=== PATIENT | male | born 1965 | race African-American/Black ===

== ENCOUNTER 2023-12-23 19:07 | Inpatient (IN) | payer MEDICAID ==
[~2023-12-23] VITALS: Ht 165.1 cm; Wt 56.5 kg
[2023-12-23 21:59] LABS: BASOPHILS % 0.4 % (0.0-2.0); DIFFERENTIAL COMMENT 0; HEMOGLOBIN. 14.9 g/dL (14.0-18.0); MEAN CORPUSCULAR HEMOGLOBIN 28.1 pg (28.0-32.0); MEAN CORPUSCULAR HGB CONC 32.4 g/dL (31.0-37.0); MEAN CORPUSCULAR VOLUME 86.9 fL (80.0-94.0); MEAN PLATELET VOLUME 7.5 fl (7.4-10.4); MONOCYTES % 6.7 % (2.0-8.0); NEUTROPHILS % 79.9 % (40.0-76.0); PLATELET 329 x1000/uL (130-400); RED BLOOD CELL COUNT 5.29 mill/uL (4.7-6.1); RED CELL DISTRIBUTION WIDTH 15.6 % (11.6-14.6); WHITE BLOOD COUNT 12.3 x1000/uL (4.5-11.0)
[2023-12-23 22:06] LABS: CARBON DIOXIDE 23 mEq/L (21-32); CHLORIDE 101 mEq/L (98-107); POTASSIUM 4.6 mEq/L (3.5-5.1); SODIUM 132 mEq/L (136-145)
[2023-12-23 22:07] LABS: CALCIUM 9.1 mg/dL (8.7-10.4)
[2023-12-23 22:11] LABS: GLUCOSE 119 mg/dL (70-105)
[2023-12-23 22:12] LABS: UREA NITROGEN BLOOD 12 mg/dL (9-23)
[2023-12-23 22:13] LABS: ALANINE AMINOTRANSFERASE 7 IU/L (10-49); ALBUMIN 3.6 g/dL (3.2-4.8); ASPARTATE AMINOTRANSFERASE 11 IU/L (<34)
[2023-12-23 22:14] LABS: BILIRUBIN DIRECT 0.2 mg/dL (<=3.0); BILIRUBIN TOTAL 0.7 mg/dL (0.1-1.0); PROTEIN TOTAL 7.6 g/dL (6.0-8.3)
[2023-12-23 22:18] LABS: D-DIMER 8.05 mg/L FEU (<0.50); INR 1.1; PROTHROMBIN TIME 12.2 sec (9.6-11.0); TROPONIN I HIGH SENSITIVITY < 4 ng/L (3.0-53)
[2023-12-23] MEDS ORDERED: AZITHROMYCIN 500MG/250ML 250 ML IV SCH (23:00)
[2023-12-23] MEDS ORDERED: CEFTRIAXONE 1GM/50ML 50 ML IV ONE (23:00)
[2023-12-24] MEDS: SODIUM CHLORIDE 0.9% 1,000 ML IV ONE (00:19)
[2023-12-24 04:39] LABS: CLARITY URINE CLEAR (CLEAR); COLOR URINE YELLOW (YELLOW); GLUCOSE URINE NEGATIVE (NEGATIVE); KETONES URINE NEGATIVE (NEGATIVE); LEUKOCYTE ESTERASE URINE NEGATIVE (NEGATIVE); NITRITE URINE NEGATIVE (NEGATIVE); OCCULT BLOOD URINE NEGATIVE (NEGATIVE); PH URINE 5.5 (4.5-8.0); PROTEIN URINE 1+ (NEGATIVE); SPECIFIC GRAVITY URINE 1.065 (1.005-1.030)
[2023-12-24 04:48] LABS: BACTERIA URINE NONE SEEN; RBC URINE NONE SEEN /hpf (0-2); SQUAMOUS EPITHELIAL CELL URINE NONE SEEN /lpf (RARE/1+); WBC URINE NONE SEEN /hpf (0-2)
[2023-12-24] MEDS: AZITHROMYCIN 500MG/250ML 250 ML IV NR (05:18)
[2023-12-24] MEDS: CEFTRIAXONE 1GM/50ML 50 ML IV NR (08:30)
[2023-12-24] MEDS ORDERED: IPRATROPIUM/ALBUTEROL 0.5-3(2.5)MG/3ML NEB HHN PRN (13:45)
[2023-12-24] MEDS ORDERED: DICLOFENAC SODIUM 1% GEL 50GM TOP SCH (17:00)
[2023-12-24] MEDS ORDERED: CEFEPIME 1GM IN DEXT 5% 50ML IV ONE (18:00)
[2023-12-24] MEDS: IPRATROPIUM/ALBUTEROL 0.5-3(2.5)MG/3ML NEB HHN SCH (19:28)
[2023-12-24 19:33] VITALS: PULSE 97; RESP 19; O2SAT 97
[2023-12-24 20:30] VITALS: BP 125/73; PULSE 95; RESP 20; TEMP 37.05852; TEMP 37.0852; O2SAT 97
[2023-12-24] MEDS: DIPHENHYDRAMINE 25MG CAPSULE PO SCH (21:00)
[2023-12-24] MEDS ORDERED: BICT1TAB PO (21:08)
[2023-12-24] MEDS ORDERED: DIPH-1205 PO (21:08)
[2023-12-24] MEDS ORDERED: SULF1TAB44 PO (21:08)
[2023-12-24] MEDS ORDERED: IBUP-2028 PO (21:08)
[2023-12-24] MEDS ORDERED: NALOXONE HCL 0.4MG/ML VIAL IV PRN (22:00)
[2023-12-24] MEDS ORDERED: NON FORMULARY MED XX SCH (22:00)
[2023-12-24] MEDS ORDERED: IBUPROFEN 400MG TABLET PO PRN (22:00)
[2023-12-24] MEDS: CEFEPIME 1GM/50ML 50 ML IV NR (23:57)
[2023-12-25 00:07] VITALS: BP 104/67; PULSE 99; RESP 20; TEMP 36.61404; O2SAT 97
[2023-12-25] MEDS: DIPHENHYDRAMINE 25MG CAPSULE PO SCH ×2 (00:16→21:36)
[2023-12-25 04:00] VITALS: BP 114/65; PULSE 102; RESP 21; TEMP 36.22512; O2SAT 97
[2023-12-25] MEDS ORDERED: AZITHROMYCIN 500MG/250ML 250 ML IV SCH (05:00)
[2023-12-25] MEDS: AZITHROMYCIN 500MG/250ML 250 ML IV SCH (05:28)
[2023-12-25 07:55] LABS: BASOPHILS % 0.1 % (0.0-2.0); DIFFERENTIAL COMMENT 0; EOSINOPHILS % 1.5 % (0.0-5.0); HEMATOCRIT. 35.2 % (42.0-52.0); HEMOGLOBIN. 11.4 g/dL (14.0-18.0); MEAN CORPUSCULAR HEMOGLOBIN 27.7 pg (28.0-32.0); MEAN CORPUSCULAR HGB CONC 32.3 g/dL (31.0-37.0); MEAN CORPUSCULAR VOLUME 85.5 fL (80.0-94.0); MEAN PLATELET VOLUME 7.9 fl (7.4-10.4); MONOCYTES % 8.7 % (2.0-8.0); NEUTROPHILS % 78.7 % (40.0-76.0); PLATELET 263 x1000/uL (130-400); RED BLOOD CELL COUNT 4.11 mill/uL (4.7-6.1); RED CELL DISTRIBUTION WIDTH 15.3 % (11.6-14.6); WHITE BLOOD COUNT 10.1 x1000/uL (4.5-11.0)
[2023-12-25 08:00] VITALS: BP 97/70; PULSE 98; RESP 18; TEMP 36.72516; O2SAT 96
[2023-12-25 08:16] LABS: CALCIUM 8.6 mg/dL (8.7-10.4); CHLORIDE 99 mEq/L (98-107); POTASSIUM 4.2 mEq/L (3.5-5.1); SODIUM 132 mEq/L (136-145)
[2023-12-25 08:17] LABS: CARBON DIOXIDE 28 mEq/L (21-32)
[2023-12-25 08:21] LABS: CREATINE KINASE MB FRACTION < 0.5 ng/mL (0.5-3.6)
[2023-12-25 08:22] LABS: CREATININE 0.9 mg/dL (0.6-1.3); GLUCOSE 122 mg/dL (70-105); UREA NITROGEN BLOOD 14 mg/dL (9-23)
[2023-12-25 08:24] LABS: CREATINE KINASE 35 IU/L (46-171)
[2023-12-25 08:30] LABS: TROPONIN I HIGH SENSITIVITY < 4 ng/L (3.0-53)
[2023-12-25] MEDS: DICLOFENAC SODIUM 1% GEL 50GM TOP SCH (09:00)
[2023-12-25] MEDS: SULFAMETHOXAZOLE/TRIMETHOPRIM 800/160MG TABLET PO SCH (09:38)
[2023-12-25] MEDS: HYDROCODONE/ACETAMINOPHEN 5/325MG TABLET PO PRN (09:39)
[2023-12-25 11:47] VITALS: BP 111/66; PULSE 85; RESP 19; TEMP 35.89176; O2SAT 100
[2023-12-25] MEDS: BICTEGRAVIR 50MG/EMTRICITABINE 200MG/TENOFOVIR ALA 25MG PO SCH (13:11)
[2023-12-25 16:00] VITALS: BP 100/59; PULSE 84; RESP 20; TEMP 36.44736; O2SAT 98
[2023-12-25] MEDS: CEFEPIME 2GM/100ML 100 ML IV SCH (16:41)
[2023-12-25 19:59] VITALS: BP 103/64; PULSE 89; RESP 20; TEMP 36.44736; O2SAT 99
[2023-12-26] VITALS (10 sets, daily range): BP systolic 99–115; BP diastolic 60–81; PULSE 76–96; RESP 17–20; TEMP 36.3918–37.05852; O2SAT 95–100
[2023-12-26] MEDS: ACETAMINOPHEN 325MG TABLET PO PRN (08:25)
[2023-12-26 09:10] LABS: % CD 3 POS. LYMPHOCYTES 82.5 % (57.5-86.2); % CD 4 POS. LYMPHOCYTES 9.1 % (30.8-58.5); % CD 8 POS. LYMPH 73.3 % (12.0-35.5); ABSOLUTE CD 3 1155 /uL (622-2402); ABSOLUTE CD 4 HELPER 127 /uL (359-1519); ABSOLUTE CD 8 SUPPRESSOR 1026 /uL (109-897); ABSOLUTE EOSINOPHILS 0.2 x10E3/uL (0.0-0.4); ABSOLUTE LYMPHOCYTES 1.4 x10E3/uL (0.7-3.1); ABSOLUTE MONOCYTES 0.9 x10E3/uL (0.1-0.9); ABSOLUTE NEUTROPHILS 8.3 x10E3/uL (1.4-7.0); BASOPHILS 0 % (Not Estab.); CD4/CD8 RATIO 0.12 (0.92-3.72); EOSINOPHILS 2 % (Not Estab.); HEMATOCRIT 35.7 % (37.5-51.0); HEMOGLOBIN 11.6 g/dL (13.0-17.7); IMMATURE GRANULOCYTES 1 % (Not Estab.); IMMATURE GRANULOCYTES ABSOLUTE 0.1 x10E3/uL (0.0-0.1); LYMPHOCYTES 13 % (Not Estab.); MEAN CORPUSCULAR HEMOGLOBIN 27.3 pg (26.6-33.0); MEAN CORPUSCULAR HGB CONC. 32.5 g/dL (31.5-35.7); MEAN CORPUSCULAR VOLUME 84 fL (79-97); MONOCYTES 9 % (Not Estab.); NEUTROPHILS 75 % (Not Estab.); PLATELETS 256 x10E3/uL (150-450); RBC 4.25 x10E6/uL (4.14-5.80); WBC 10.9 x10E3/uL (3.4-10.8)
[2023-12-27] VITALS (9 sets, daily range): BP systolic 93–112; BP diastolic 51–74; PULSE 68–101; RESP 15–20; TEMP 36.16956–37.11408; O2SAT 96–100
[2023-12-27] MEDS: AZITHROMYCIN 500 MG TABLET PO SCH (06:14)
[2023-12-27] MEDS: BICTEGRAVIR 50MG/EMTRICITABINE 200MG/TENOFOVIR ALA 25MG PO SCH (09:46)
[2023-12-27] MEDS: IOHEXOL-350 100 ML BOTTLE ONE (15:44)
[2023-12-28] VITALS (30 sets, daily range): BP systolic 82–145; BP diastolic 53–133; PULSE 67–86; RESP 14–26; TEMP 36.05844–37.16964; O2SAT 94–100
[2023-12-28] MEDS ORDERED: TALC 3 GM VIAL IX NR (13:15)
[2023-12-28] MEDS ORDERED: POLYMYXIN B SULFATE 500000 UNITS/VIAL ONE (13:28)
[2023-12-28] MEDS ORDERED: TETRACAINE/BENZOCAINE/BUTAMBEN 20 GM SPRAY MM ONE (13:29)
[2023-12-28] MEDS ORDERED: SKIN ADHESIVE 0.7 GM EA TOP ONE (13:29)
[2023-12-28] MEDS ORDERED: BUPIVACAINE HCL/PF 0.25% (2.5MG/ML) 10ML ONE ×2 (13:29→13:30)
[2023-12-28] MEDS ORDERED: PROPOFOL 200MG/20ML VIAL IV ONE (14:45)
[2023-12-28] MEDS ORDERED: SUCCINYLCHOLINE CHLORIDE 200MG/10ML IV ONE (14:45)
[2023-12-28] MEDS ORDERED: LIDOCAINE HCL 1% 10 MG/ML 10ML VIAL ONE (14:45)
[2023-12-28] MEDS ORDERED: FENTANYL CITRATE/PF 50MCG/ML 2ML VIAL ONE (14:46)
[2023-12-28] MEDS ORDERED: ROCURONIUM BROMIDE 10MG/ML VIAL 5ML IV ONE (15:22)
[2023-12-28] MEDS ORDERED: NEOSTIGMINE METHYLSULFATE 1MG/ML 10 ML VIAL ONE (16:30)
[2023-12-28] MEDS ORDERED: ONDANSETRON HCL 4MG/2ML INJ IV PRN (16:30)
[2023-12-28] MEDS ORDERED: GLYCOPYRROLATE 0.2 MG/ML 2ML VIAL ONE ×2 (16:30)
[2023-12-28] MEDS: HYDROMORPHONE HCL/PF 1MG/ML INJ IV PRN (17:07)
[2023-12-28 18:39] LABS: BASOPHILS % 0.2 % (0.0-2.0); DIFFERENTIAL COMMENT 0; EOSINOPHILS % 1.2 % (0.0-5.0); HEMATOCRIT. 34.8 % (42.0-52.0); HEMOGLOBIN. 10.8 g/dL (14.0-18.0); MEAN CORPUSCULAR HEMOGLOBIN 26.4 pg (28.0-32.0); MEAN CORPUSCULAR HGB CONC 31.1 g/dL (31.0-37.0); MEAN PLATELET VOLUME 7.7 fl (7.4-10.4); MONOCYTES % 7.2 % (2.0-8.0); NEUTROPHILS % 82.4 % (40.0-76.0); PLATELET 395 x1000/uL (130-400); RED BLOOD CELL COUNT 4.09 mill/uL (4.7-6.1); RED CELL DISTRIBUTION WIDTH 15.5 % (11.6-14.6); WHITE BLOOD COUNT 7.7 x1000/uL (4.5-11.0)
[2023-12-28] MEDS: MORPHINE SULFATE 4 MG/ML INJ (FOR IV/IM USE) IV PRN (19:41)
[2023-12-28] MEDS: MELATONIN 3MG TABLET PO NR (23:43)
[2023-12-28] MEDS: ONDANSETRON HCL 4MG/2ML INJ IV PRN (23:43)
[2023-12-29] VITALS (66 sets, daily range): BP systolic 86–131; BP diastolic 18–100; PULSE 66–100; RESP 12–31; TEMP 36.28068–36.83628; O2SAT 87–100
[2023-12-29 06:02] LABS: CALCIUM 9.3 mg/dL (8.7-10.4); CHLORIDE 96 mEq/L (98-107); POTASSIUM 4.9 mEq/L (3.5-5.1); SODIUM 128 mEq/L (136-145)
[2023-12-29 06:04] LABS: CARBON DIOXIDE 28 mEq/L (21-32)
[2023-12-29 06:09] LABS: CREATININE 0.9 mg/dL (0.6-1.3); GLUCOSE 144 mg/dL (70-105); UREA NITROGEN BLOOD 17 mg/dL (9-23)
[2023-12-29 06:16] LABS: BASOPHILS % 0.2 % (0.0-2.0); HEMATOCRIT. 34.2 % (42.0-52.0); HEMOGLOBIN. 11.1 g/dL (14.0-18.0); LYMPHOCYTES % 12.8 % (20.0-50.0); MEAN CORPUSCULAR HEMOGLOBIN 27.4 pg (28.0-32.0); MEAN CORPUSCULAR HGB CONC 32.5 g/dL (31.0-37.0); MEAN CORPUSCULAR VOLUME 84.5 fL (80.0-94.0); MEAN PLATELET VOLUME 7.9 fl (7.4-10.4); MONOCYTES % 10.9 % (2.0-8.0); NEUTROPHILS % 75.1 % (40.0-76.0); PLATELET 433 x1000/uL (130-400); RED BLOOD CELL COUNT 4.05 mill/uL (4.7-6.1); RED CELL DISTRIBUTION WIDTH 15.3 % (11.6-14.6); WHITE BLOOD COUNT 8.8 x1000/uL (4.5-11.0)
[2023-12-30] VITALS (14 sets, daily range): BP systolic 89–124; BP diastolic 68–83; PULSE 87–95; RESP 18–28; TEMP 37.39188–37.7808; O2SAT 88–100
[2023-12-30 12:58] LABS: CHLORIDE 93 mEq/L (98-107); POTASSIUM 4.1 mEq/L (3.5-5.1); SODIUM 126 mEq/L (136-145)
[2023-12-30 12:59] LABS: CALCIUM 8.8 mg/dL (8.7-10.4); CARBON DIOXIDE 29 mEq/L (21-32)
[2023-12-30 13:02] LABS: BASOPHILS % 0.3 % (0.0-2.0); DIFFERENTIAL COMMENT 0; EOSINOPHILS % 0.8 % (0.0-5.0); HEMATOCRIT. 33.5 % (42.0-52.0); HEMOGLOBIN. 11.1 g/dL (14.0-18.0); LYMPHOCYTES % 14.8 % (20.0-50.0); MEAN CORPUSCULAR HEMOGLOBIN 28.2 pg (28.0-32.0); MEAN CORPUSCULAR HGB CONC 33.2 g/dL (31.0-37.0); MEAN CORPUSCULAR VOLUME 84.9 fL (80.0-94.0); MEAN PLATELET VOLUME 7.8 fl (7.4-10.4); MONOCYTES % 8.7 % (2.0-8.0); NEUTROPHILS % 75.4 % (40.0-76.0); PLATELET 529 x1000/uL (130-400); RED BLOOD CELL COUNT 3.95 mill/uL (4.7-6.1); RED CELL DISTRIBUTION WIDTH 15.4 % (11.6-14.6); WHITE BLOOD COUNT 7.2 x1000/uL (4.5-11.0)
[2023-12-30 13:04] LABS: CREATININE 0.8 mg/dL (0.6-1.3); GLUCOSE 132 mg/dL (70-105); UREA NITROGEN BLOOD 11 mg/dL (9-23)
[2023-12-30] MEDS ORDERED: NALOXONE HCL 0.4MG/ML VIAL IV PRN (14:00)
[2023-12-31] VITALS (13 sets, daily range): BP systolic 76–144; BP diastolic 58–98; PULSE 74–95; RESP 16–29; TEMP 36.22512–37.7808; O2SAT 92–97
[2023-12-31] MEDS: LINEZOLID 600MG TABLET PO SCH (15:29)
[2023-12-31] MEDS: CEFAZOLIN 2GM/100ML 100 ML IV SCH (15:29)
[2024-01-01] VITALS: BP 101/66; PULSE 70; RESP 21; O2SAT 95
[2024-01-01] MEDS: HYDROCODONE/ACETAMINOPHEN 5/325MG TABLET PO PRN (01:13)
[2024-01-01 04:00] VITALS: BP 100/67; PULSE 63; RESP 14; O2SAT 98
[2024-01-01 07:14] LABS: PROTHROMBIN TIME 10.8 sec (9.6-11.0)
[2024-01-01 07:29] LABS: CHLORIDE 99 mEq/L (98-107); POTASSIUM 3.9 mEq/L (3.5-5.1); SODIUM 133 mEq/L (136-145)
[2024-01-01 07:31] LABS: CARBON DIOXIDE 28 mEq/L (21-32)
[2024-01-01 07:37] LABS: GLUCOSE 125 mg/dL (70-105); UREA NITROGEN BLOOD 17 mg/dL (9-23)
[2024-01-01 07:38] LABS: ALANINE AMINOTRANSFERASE 25 IU/L (10-49); ALBUMIN 3.4 g/dL (3.2-4.8)
[2024-01-01 07:39] LABS: ASPARTATE AMINOTRANSFERASE 32 IU/L (<34); BILIRUBIN TOTAL < 0.2 mg/dL (0.1-1.0); PHOSPHORUS 3.1 mg/dL (2.5-4.9); PROTEIN TOTAL 7.2 g/dL (6.0-8.3)
[2024-01-01 07:40] LABS: HEMATOCRIT. 35.5 % (42.0-52.0); HEMOGLOBIN. 11.3 g/dL (14.0-18.0); MEAN CORPUSCULAR HEMOGLOBIN 26.9 pg (28.0-32.0); MEAN CORPUSCULAR HGB CONC 31.8 g/dL (31.0-37.0); MEAN CORPUSCULAR VOLUME 84.7 fL (80.0-94.0); MEAN PLATELET VOLUME 7.7 fl (7.4-10.4); PLATELET 624 x1000/uL (130-400); RED BLOOD CELL COUNT 4.19 mill/uL (4.7-6.1); RED CELL DISTRIBUTION WIDTH 15.3 % (11.6-14.6); WHITE BLOOD COUNT 6.2 x1000/uL (4.5-11.0)
[2024-01-01 07:45] LABS: BILIRUBIN DIRECT < 0.1 mg/dL (<=3.0)
[2024-01-01 08:00] VITALS: BP 101/70; PULSE 73; TEMP 36.61404; O2SAT 97
[2024-01-01 08:03] LABS: DIFFERENTIAL COMMENT 1
[2024-01-01 12:00] VITALS: BP 101/73; PULSE 85; TEMP 36.61404; O2SAT 96
[2024-01-01] MEDS: HYDROCODONE/ACETAMINOPHEN 10/325MG TABLET PO PRN (12:21)
[2024-01-01] MEDS: SULFAMETHOXAZOLE/TRIMETHOPRIM 800/160MG TABLET PO SCH (12:23)
[2024-01-01 16:00] VITALS: BP 114/78; PULSE 70; RESP 16; TEMP 36.61404; O2SAT 98
[2024-01-01] MEDS ORDERED: FLUC200T51 PO (17:56)
[2024-01-01] MEDS ORDERED: DIPH-1205 PO (17:56)
[2024-01-01 20:00] VITALS: BP 116/72; PULSE 74; RESP 22; TEMP 36.114; O2SAT 98
[2024-01-02] VITALS: BP 100/67; PULSE 70; RESP 16; TEMP 36.72516; O2SAT 95
[2024-01-02 04:00] VITALS: BP 135/79; PULSE 80; RESP 23; TEMP 36.6696; O2SAT 90
[2024-01-02 07:44] LABS: HEMATOCRIT. 32.1 % (42.0-52.0); HEMOGLOBIN. 10.4 g/dL (14.0-18.0); MEAN CORPUSCULAR HEMOGLOBIN 27.4 pg (28.0-32.0); MEAN CORPUSCULAR HGB CONC 32.5 g/dL (31.0-37.0); MEAN CORPUSCULAR VOLUME 84.4 fL (80.0-94.0); MEAN PLATELET VOLUME 7.4 fl (7.4-10.4); PLATELET 615 x1000/uL (130-400); RED CELL DISTRIBUTION WIDTH 15.9 % (11.6-14.6); WHITE BLOOD COUNT 6.2 x1000/uL (4.5-11.0)
[2024-01-02 07:51] LABS: DIFFERENTIAL COMMENT 1
[2024-01-02 08:00] VITALS: BP 96/76; PULSE 72; RESP 18; TEMP 36.61404; O2SAT 99
[2024-01-02 08:00] LABS: CHLORIDE 99 mEq/L (98-107); POTASSIUM 4.5 mEq/L (3.5-5.1); SODIUM 132 mEq/L (136-145)
[2024-01-02 08:01] LABS: CALCIUM 8.5 mg/dL (8.7-10.4); CARBON DIOXIDE 32 mEq/L (21-32)
[2024-01-02 08:06] LABS: CREATININE 0.9 mg/dL (0.6-1.3); GLUCOSE 95 mg/dL (70-105); UREA NITROGEN BLOOD 17 mg/dL (9-23)
[2024-01-02 08:47] LABS: PLATELET ESTIMATE INCREASED
[2024-01-02 11:16] LABS: CLARITY URINE CLOUDY (CLEAR); COLOR URINE ORANGE (YELLOW); GLUCOSE URINE NEGATIVE (NEGATIVE); KETONES URINE NEGATIVE (NEGATIVE); LEUKOCYTE ESTERASE URINE TRACE (NEGATIVE); NITRITE URINE NEGATIVE (NEGATIVE); OCCULT BLOOD URINE 3+ (NEGATIVE); PROTEIN URINE 2+ (NEGATIVE); SPECIFIC GRAVITY URINE 1.026 (1.005-1.030)
[2024-01-02 11:36] LABS: BACTERIA URINE 2+; RBC URINE TNTC /hpf (0-2); SQUAMOUS EPITHELIAL CELL URINE NONE SEEN /lpf (RARE/1+); YEAST URINE NONE SEEN
[2024-01-02 12:00] VITALS: BP 125/76; PULSE 96; RESP 17; TEMP 36.9474; O2SAT 99
[2024-01-02 16:00] VITALS: BP 104/68; PULSE 82; RESP 19; TEMP 36.72516; O2SAT 98
[2024-01-02 20:00] VITALS: BP 100/62; PULSE 69; RESP 20; TEMP 36.61404; O2SAT 100
[2024-01-02 21:02] LABS: PLATELET ESTIMATE INCREASED
[2024-01-03] VITALS (8 sets, daily range): BP systolic 93–110; BP diastolic 46–74; PULSE 66–92; RESP 16–20; TEMP 35.72508–36.9474; O2SAT 94–100
[2024-01-03] MEDS: LORAZEPAM 2MG/ML INJ IV PRN (02:18)
[2024-01-03 07:17] LABS: CHLORIDE 98 mEq/L (98-107); POTASSIUM 4.3 mEq/L (3.5-5.1); SODIUM 133 mEq/L (136-145)
[2024-01-03 07:18] LABS: CALCIUM 8.8 mg/dL (8.7-10.4); CARBON DIOXIDE 32 mEq/L (21-32); HEMATOCRIT. 33.3 % (42.0-52.0); HEMOGLOBIN. 10.7 g/dL (14.0-18.0); MEAN CORPUSCULAR HEMOGLOBIN 27.2 pg (28.0-32.0); MEAN CORPUSCULAR HGB CONC 32.1 g/dL (31.0-37.0); MEAN CORPUSCULAR VOLUME 84.8 fL (80.0-94.0); MEAN PLATELET VOLUME 7.3 fl (7.4-10.4); PLATELET 629 x1000/uL (130-400); RED BLOOD CELL COUNT 3.93 mill/uL (4.7-6.1); RED CELL DISTRIBUTION WIDTH 15.7 % (11.6-14.6); WHITE BLOOD COUNT 5.9 x1000/uL (4.5-11.0)
[2024-01-03 07:23] LABS: CREATININE 0.9 mg/dL (0.6-1.3); GLUCOSE 87 mg/dL (70-105); UREA NITROGEN BLOOD 16 mg/dL (9-23)
[2024-01-03 07:38] LABS: DIFFERENTIAL COMMENT 1
[2024-01-03] MEDS: IPRATROPIUM/ALBUTEROL 0.5-3(2.5)MG/3ML NEB HHN SCH (12:22)
[2024-01-03 16:44] LABS: PLATELET ESTIMATE INCREASED
[2024-01-03] MEDS ORDERED: IPRATROPIUM/ALBUTEROL 0.5-3(2.5)MG/3ML NEB HHN PRN (17:40)
[2024-01-04 00:14] VITALS: BP 92/56; PULSE 68; RESP 18; TEMP 37.16964; O2SAT 96
[2024-01-04 04:00] VITALS: BP 121/84; PULSE 76; RESP 20; TEMP 37.16964; O2SAT 98
[2024-01-04 07:09] LABS: CARBON DIOXIDE 30 mEq/L (21-32); CHLORIDE 100 mEq/L (98-107); POTASSIUM 4.3 mEq/L (3.5-5.1); SODIUM 135 mEq/L (136-145)
[2024-01-04 07:10] LABS: CALCIUM 8.6 mg/dL (8.7-10.4)
[2024-01-04 07:15] LABS: GLUCOSE 94 mg/dL (70-105); UREA NITROGEN BLOOD 15 mg/dL (9-23)
[2024-01-04 07:17] LABS: BASOPHILS % 0.3 % (0.0-2.0); DIFFERENTIAL COMMENT 0; EOSINOPHILS % 6.1 % (0.0-5.0); HEMATOCRIT. 32.6 % (42.0-52.0); HEMOGLOBIN. 10.4 g/dL (14.0-18.0); LYMPHOCYTES % 22.2 % (20.0-50.0); MEAN CORPUSCULAR HEMOGLOBIN 26.6 pg (28.0-32.0); MEAN CORPUSCULAR HGB CONC 31.7 g/dL (31.0-37.0); MEAN PLATELET VOLUME 7.3 fl (7.4-10.4); MONOCYTES % 13.2 % (2.0-8.0); NEUTROPHILS % 58.2 % (40.0-76.0); PLATELET 596 x1000/uL (130-400); RED BLOOD CELL COUNT 3.89 mill/uL (4.7-6.1); RED CELL DISTRIBUTION WIDTH 15.5 % (11.6-14.6); WHITE BLOOD COUNT 6.2 x1000/uL (4.5-11.0)
[2024-01-04 08:00] VITALS: BP 105/63; PULSE 77; RESP 20; TEMP 36.61404; O2SAT 97
[2024-01-04 12:00] VITALS: BP 106/58; PULSE 77; RESP 18; TEMP 36.61404; O2SAT 97
[2024-01-04 16:00] VITALS: BP 109/66; PULSE 106; RESP 18; TEMP 36.44736; O2SAT 100
[2024-01-04 20:00] VITALS: BP 102/48; PULSE 79; RESP 18; TEMP 37.11408; O2SAT 98
[2024-01-04] MEDS: GUAIFENESIN 600MG ER TABLET PO SCH (20:06)
[2024-01-05] VITALS (7 sets, daily range): BP systolic 101–112; BP diastolic 57–70; PULSE 74–96; RESP 18–20; TEMP 37.00296–37.28076; O2SAT 97–98
[2024-01-05] MEDS: IPRATROPIUM/ALBUTEROL 0.5-3(2.5)MG/3ML NEB HHN SCH (09:30)
[2024-01-05] MEDS ORDERED: LINE600T14 MT (13:45)
[2024-01-05] MEDS ORDERED: SULF1TAB48 MT (13:45)
[2024-01-05] MEDS ORDERED: BICT1TAB PO (13:45)
== END 2024-01-05 18:12 | disposition home or self-care (01) | DRG 969 ==
LOC: ER 19:07 → 7WST 12-24 → EDBEDREQ 12-24 00:43 → EDBEDREQTM 12-24 00:43 → EDBEDREQDT 12-24 00:43 → CVICU 12-28 19:23 → 5EST 12-30 15:30 → 7WST 01-02 19:25
PROVIDERS: ADMIT Internal Medicine; ATTEND Internal Medicine
PROC: 0W9B3ZZ Drainage of Left Pleural Cavity, Percutaneous Approach (ICD-10-PCS; 2023-12-26)
PROC: 0BJ08ZZ Inspection of Tracheobronchial Tree, Via Natural or Artificial Opening Endoscopic (ICD-10-PCS; principal; 2023-12-28)
PROC: 3E0T3BZ Introduction of Anesthetic Agent into Peripheral Nerves and Plexi, Percutaneous Approach (ICD-10-PCS; 2023-12-28)
PROC: 0W9B30Z Drainage of Left Pleural Cavity with Drainage Device, Percutaneous Approach (ICD-10-PCS; 2023-12-28)
PROC: 4A133B3 Monitoring of Arterial Pressure, Pulmonary, Percutaneous Approach (ICD-10-PCS; 2023-12-28)
PROC: 0BNG4ZZ Release Left Upper Lung Lobe, Percutaneous Endoscopic Approach (ICD-10-PCS; 2023-12-28)
PROC: 0BNJ4ZZ Release Left Lower Lung Lobe, Percutaneous Endoscopic Approach (ICD-10-PCS; 2023-12-28)
PROC: 0W9B4ZZ Drainage of Left Pleural Cavity, Percutaneous Endoscopic Approach (ICD-10-PCS; 2023-12-28)
PROC: 0W9B30Z Drainage of Left Pleural Cavity with Drainage Device, Percutaneous Approach (ICD-10-PCS; 2023-12-28)
DX: A41.9 Sepsis, unspecified organism (principal); J86.9 Pyothorax without fistula; B20 Human immunodeficiency virus [HIV] disease; J96.01 Acute respiratory failure with hypoxia; J90 Pleural effusion, not elsewhere classified; I51.7 Cardiomegaly; F17.210 Nicotine dependence, cigarettes, uncomplicated; B96.20 Unspecified Escherichia coli [E. coli] as the cause of diseases classified elsewhere
CPT/HCPCS: 32555; 36415; 71045; 71275; 80048; 80076; 81003; 82550; 82553; 83735; 83880; 84100; 84145; 84484; 85025; 85379; 86359; 86360; 87077; 87186; 88108; 88305; 88312; 93005; 93306; 94640; 96361; 96365; 96366; 96367; 99291; J0330; J0456; J0690; J0692; J0696; J1170; J2060; J2270; J2405; J2704; J2710; J3010; J3490; J7030; Q0163; Q9967